=== PATIENT | male | born 1955 | race Caucasian/White ===

== ENCOUNTER 2020-02-18 14:21 | Emergency (ER) | payer SELFPAY ==
[2020-02-18] MEDS ORDERED: Lidocaine 1% PF 5 ML VIAL ONE (15:42)
[2020-02-18] MEDS ORDERED: Boostrix 0.5 ML (Tdap) VIAL ONE (15:44)
== END 2020-02-18 17:08 | disposition home or self-care (01) ==
LOC: ERS 14:21
DX: S61.412A Laceration without foreign body of left hand, initial encounter (principal); W18.30XA Fall on same level, unspecified, initial encounter
CPT/HCPCS: 12002; 90471; 90715